=== PATIENT | male | born 1995 | race Caucasian/White ===

== ENCOUNTER 2020-11-09 12:37 | Emergency (ER) | payer OTHER ==
[~2020-11-09] VITALS: Ht 167.6 cm; Wt 57.9 kg
[2020-11-09] MEDS ORDERED: KETOROLAC 30 MG/ML 1ML VIAL IV ONE (14:00)
[2020-11-09 14:12] LABS: BASO % 0.2 % (0.0-1.0); HEMOGLOBIN 14.9 g/dl (13.5-17.5); LYMPH # 1.4 10^3/uL (1.5-5.0); LYMPH % 10.6 % (24.0-44.0); MEAN CORPUSCULAR HEMOGLOBIN 30.5 pg (27.0-33.0); MEAN CORPUSCULAR HGB CONC 33.1 g/dl (32.0-36.5); MEAN CORPUSCULAR VOLUME 92.2 fl (80.0-96.0); MONO # 0.9 10^3/uL (0.0-0.8); MONO % 7.2 % (0.0-5.0); NEUTROPHILS # 10.5 10^3/uL (1.5-8.5); NEUTROPHILS % 81.7 % (36.0-66.0); PLATELET COUNT, AUTOMATED 228 10^3/uL (150-450); RED BLOOD COUNT 4.88 10^6/uL (4.30-6.10); WHITE BLOOD COUNT 12.8 10^3/uL (4.0-10.0)
[2020-11-09 14:35] LABS: ALBUMIN 4.4 GM/DL (3.2-5.2); ALT/SGPT 27 U/L (12-78); BILIRUBIN,DIRECT 0.2 MG/DL (0.0-0.2); BILIRUBIN,TOTAL 0.8 MG/DL (0.2-1.0); BLOOD UREA NITROGEN 11 MG/DL (7-18); CALCIUM LEVEL 9.9 MG/DL (8.5-10.1); CARBON DIOXIDE LEVEL 28 MEQ/L (21-32); CHLORIDE LEVEL 103 MEQ/L (98-107); CREATININE FOR GFR 0.79 MG/DL (0.70-1.30); GLOMERULAR FILTRATION RATE > 60.0 (>60); GLUCOSE, FASTING 83 MG/DL (70-100); LIPASE 77 U/L (73-393); POTASSIUM SERUM 3.7 MEQ/L (3.5-5.1); SODIUM LEVEL 138 MEQ/L (136-145); TOTAL PROTEIN 7.8 GM/DL (6.4-8.2)
[2020-11-09] MEDS ORDERED: ISOVUE-370 76% 100ML VIAL As Ordered ONE (15:13)
--- NOTE | 2020-11-09 15:39 | REP ---
INDICATION: left sided abdominal pain COMPARISON: None. TECHNIQUE: CT Scan of the abdomen and pelvis was performed with intravenous administration of 100 cc of Isovue 370, without oral contrast. Sagittal and coronal reconstruction images are performed. FINDINGS: Lung bases: Unremarkable. Liver: There is mild fatty infiltration along the falciform ligament. Gallbladder: Unremarkable. Spleen: Normal. Adrenals: Normal. Pancreas: Normal. Kidneys: Normal. Small and large bowel: Several diverticula are seen of the left colon. There is segmental thickening of the left colon in its mid aspect. There is surrounding inflammatory change in the pericolonic fat. There is mild free fluid in the left paracolic gutter and pelvis. The findings are consistent with diverticulitis of the left colon. Free fluid: Mild free fluid in the left pericolic gutter and pelvis. Abdominal aorta: No aneurysm or dissection. Adenopathy: None. Appendix: Not inflamed. Osseous structures: Unremarkable. Pelvis: No mass. IMPRESSION: Findings consistent with diverticulitis of the left colon, with mild free fluid in the left paracolic gutter and pelvis. No free air. <Electronically signed by Demond Hernandez > 11/09/20 [id number]
[2020-11-09] MEDS ORDERED: PERC5TAB12 PO (15:54)
[2020-11-09] MEDS ORDERED: ONDA4TAB6 PO (15:54)
[2020-11-09] MEDS ORDERED: CIPR-249 PO (15:54)
[2020-11-09] MEDS ORDERED: FLAG500T PO (15:54)
[2020-11-09] MEDS ORDERED: ONDANSETRON 4 MG ORAL DISINTEGRATING TAB PO ONE (16:00)
[2020-11-09] MEDS ORDERED: PERCOCET 5MG/325MG TAB PO ONE (16:00)
[2020-11-09 16:04] VITALS: BP 132/71
== END 2020-11-09 16:06 | disposition home or self-care (01) ==
LOC: M ED 12:37
DX: K57.92 Diverticulitis of intestine, part unspecified, without perforation or abscess without bleeding (principal)
CPT/HCPCS: 74177; 80048; 80076; 81001; 83690; 85025; 96374; 99284; J1885; Q0162; Q9967

== ENCOUNTER 2021-05-26 13:38 | Emergency (ER) | payer OTHER ==
[~2021-05-26] VITALS: Ht 167.6 cm; Wt 58.5 kg
[~2021-05-26 13:38] MED LIST: CIPR-249 PO; FLAG500T PO; ONDA4TAB6 PO; PERC5TAB12 PO
[2021-05-26] MEDS ORDERED: FLUO40CA PO (13:51)
[2021-05-26] MEDS ORDERED: ONDANSETRON 4MG/2ML VIAL IV ONE (15:40)
[2021-05-26] MEDS ORDERED: NS 1,000 ML IV ONE (15:40)
[2021-05-26] MEDS ORDERED: ACETAMINOPHEN 325 MG TAB PO ONE (15:40)
[2021-05-26 15:56] LABS: BASO % 0.2 % (0.0-1.0); EOS % 0.7 % (0.0-3.0); HEMATOCRIT 42.4 % (42.0-52.0); HEMOGLOBIN 14.3 g/dl (13.5-17.5); LYMPH # 1.2 10^3/uL (1.5-5.0); LYMPH % 21.8 % (24.0-44.0); MEAN CORPUSCULAR HEMOGLOBIN 31.1 pg (27.0-33.0); MEAN CORPUSCULAR HGB CONC 33.7 g/dl (32.0-36.5); MEAN CORPUSCULAR VOLUME 92.2 fl (80.0-96.0); MONO # 0.5 10^3/uL (0.0-0.8); MONO % 9.5 % (2.0-8.0); NEUTROPHILS # 3.9 10^3/uL (1.5-8.5); NEUTROPHILS % 67.4 % (36.0-66.0); PLATELET COUNT, AUTOMATED 214 10^3/uL (150-450); WHITE BLOOD COUNT 5.7 10^3/uL (4.0-10.0)
[2021-05-26] MEDS ORDERED: ISOVUE-370 76% 100ML VIAL As Ordered ONE (16:20)
[2021-05-26 16:25] LABS: ALBUMIN 3.6 GM/DL (3.2-5.2); ALT/SGPT 26 U/L (12-78); BILIRUBIN,DIRECT < 0.1 MG/DL (0.0-0.2); BILIRUBIN,TOTAL 0.2 MG/DL (0.2-1.0); LIPASE 100 U/L (73-393); TOTAL PROTEIN 6.9 GM/DL (6.4-8.2)
--- NOTE | 2021-05-26 17:33 | REP ---
INDICATION: abdominal pain. COMPARISON: Abdomen/pelvis CT dated 11/09/2020 with IV contrast. TECHNIQUE: Abdomen/pelvis CT with IV contrast, without bowel contrast. FINDINGS: There are multiple diverticula in the descending colon and sigmoid colon as previously. The previous diverticulitis has resolved. There is wall thickening of the descending colon, nonspecific. This could be secondary to diverticulosis are could represent inflammatory versus infectious colitis in the appropriate clinical setting. There is no ascites. There is no pneumoperitoneum. There is no bowel distention or obstruction. The visualized lung rodriguez are unremarkable. The hepatic parenchyma, gallbladder, pancreas, spleen, adrenals, kidneys and abdominal aorta are unremarkable. The mesentery is unremarkable. Pelvis: The appendix is unremarkable. The bladder is unremarkable. There is no ascites or adenopathy. IMPRESSION: Descending colon diverticulosis without diverticulitis. There is focal wall thickening of the descending colon, nonspecific, secondary to the diverticulosis versus inflammatory versus infectious colitis. The previous diverticulitis has resolved. <Electronically signed by Demond Fisher > 05/26/21 [id number]
[2021-05-26] MEDS ORDERED: AUGM875T28 PO (18:26)
[2021-05-26 18:27] VITALS: BP 113/73
[2021-05-26] MEDS ORDERED: ONDA4TAB6 PO (18:28)
[2021-05-26] MEDS ORDERED: KETOROLAC 30 MG/ML 1ML VIAL IV ONE (18:30)
[2021-05-26] MEDS ORDERED: AUGMENTIN 875 MG TAB PO ONE (18:30)
== END 2021-05-26 18:50 | disposition home or self-care (01) ==
LOC: M ED 13:38
DX: K52.9 Noninfective gastroenteritis and colitis, unspecified (principal)
CPT/HCPCS: 74177; 80047; 80076; 81001; 83605; 83690; 85025; 96361; 96374; 96375; 99284; J1885; J2405; Q9967

== ENCOUNTER → 2021-07-01 | Outpatient (CLI) | payer OTHER ==
[~2021-07-01] MED LIST changes: +AUGM875T28 PO; +FLUO40CA PO
[2021-07-01 15:54] LABS: BASO % 0.2 % (0.0-1.0); EOS % 0.1 % (0.0-3.0); HEMATOCRIT 42.5 % (42.0-52.0); HEMOGLOBIN 14.6 g/dl (13.5-17.5); LYMPH # 1.2 10^3/uL (1.5-5.0); LYMPH % 13.6 % (24.0-44.0); MEAN CORPUSCULAR HEMOGLOBIN 31.3 pg (27.0-33.0); MEAN CORPUSCULAR HGB CONC 34.4 g/dl (32.0-36.5); MONO # 0.6 10^3/uL (0.0-0.8); MONO % 7.1 % (2.0-8.0); NEUTROPHILS # 7.1 10^3/uL (1.5-8.5); NEUTROPHILS % 78.6 % (36.0-66.0); PLATELET COUNT, AUTOMATED 232 10^3/uL (150-450); RED BLOOD COUNT 4.67 10^6/uL (4.30-6.10); WHITE BLOOD COUNT 9.1 10^3/uL (4.0-10.0)
[2021-07-01 16:50] LABS: ERYTHROCYTE SEDIMENTATION RATE 7 mm/hr (0-15)
[2021-07-01 16:56] LABS: ALBUMIN 3.8 GM/DL (3.2-5.2); ALT/SGPT 35 U/L (12-78); BILIRUBIN,TOTAL 0.3 MG/DL (0.2-1.0); BLOOD UREA NITROGEN 14 MG/DL (7-18); C REACTIVE PROTEIN QUANTITATIV 0.63 MG/DL (0.00-0.30); CALCIUM LEVEL 8.9 MG/DL (8.5-10.1); CARBON DIOXIDE LEVEL 27 MEQ/L (21-32); CHLORIDE LEVEL 105 MEQ/L (98-107); CREATININE FOR GFR 0.84 MG/DL (0.70-1.30); GLOMERULAR FILTRATION RATE > 60.0 (>60); GLUCOSE, FASTING 96 MG/DL (70-100); POTASSIUM SERUM 3.9 MEQ/L (3.5-5.1); SODIUM LEVEL 139 MEQ/L (136-145); TOTAL PROTEIN 7.3 GM/DL (6.4-8.2)
== END ==
LOC: M LAB 15:14
PROVIDERS: ATTEND Internal Medicine Gastroenterology
DX: K62.5 Hemorrhage of anus and rectum (principal)

== ENCOUNTER → 2021-07-03 | Outpatient (REF) | payer OTHER | LOC: M LAB REF 13:13 | PROVIDERS: ATTEND Internal Medicine Gastroenterology | DX: K62.5 Hemorrhage of anus and rectum (principal) ==

== ENCOUNTER → 2021-07-09 | Day surgery (SDC) | payer OTHER ==
[~2021-07-09] VITALS: Ht 167.6 cm; Wt 57.2 kg
[~2021-07-09] MED LIST changes: +DICY10CA13 PO; +LIDOCAINE 2% 100MG/5ML SDV (FOR ANES.) As Ordered ONE; +NS 1,000 ML IV ONE; +propofoL 200 MG/20 ML VIAL As Ordered ONE
--- NOTE | 2021-07-09 11:49 | ROOR ---
Patient Name: Avinash Glass Procedure Date: 07/09/2021 11:25 AM Date of : 1995 Age: 25 Room: [facility] Gender: Male Note Status: Finalized Procedure: Colonoscopy Indications: Hematochezia, Abnormal CT of the GI tract Providers: Darnell Maya MD Referring MD: ELVIN OCONNOR MD Requesting Provider: Medicines: Monitored Anesthesia Care Complications: No immediate complications. Procedure: Pre-Anesthesia Assessment: - The heart rate, respiratory rate, oxygen saturations, blood pressure, adequacy of pulmonary ventilation, and response to care were monitored throughout the procedure. The Colonoscope was introduced through the anus and advanced to 10 cm into the ileum. The colonoscopy was performed without difficulty. The patient tolerated the procedure well. The quality of the bowel preparation was good. Findings: The perianal and digital rectal examinations were normal. A 7 mm polyp was found in the proximal sigmoid colon. The polyp was semi-sessile. The polyp was removed with a cold snare. Resection and retrieval were complete. To prevent bleeding post-maneuver, three hemostatic clips were successfully placed. There was no bleeding at the end of the procedure. Mild sigmoid diverticulosis and small internal hemorrhoids. The exam was otherwise without abnormality on direct and retroflexion views. Impression: - One 7 mm polyp in the proximal sigmoid colon, removed with a cold snare. Resected and retrieved. Clips were placed. - Mild sigmoid diverticulosis (6 tiny diverticula seen) and small internal hemorrhoids. - The examination was otherwise normal on direct and retroflexion views. Recommendation: - Telephone endoscopist for pathology results in 2 weeks. - Use fiber, for example Citrucel, Fibercon, Konsyl or Metamucil. Procedure Code(s): --- Professional --- 10342, Colonoscopy, flexible; with removal of tumor(s), polyp(s), or other lesion(s) by snare technique Diagnosis Code(s): --- Professional --- R93.3, Abnormal findings on diagnostic imaging of other parts of digestive tract K92.1, Melena (includes Hematochezia) K63.5, Polyp of colon CPT copyright 2019 [employer]. All rights reserved. The codes documented in this report are preliminary and upon surgeon/president review may be revised to meet current compliance requirements. Darnell Maya MD Darnell Maya MD 07/09/2021 11:48:52 AM Electronically signed by Darnell Maya MD Number of Addenda: 0 Note Initiated On: 07/09/2021 11:25 AM Estimated Blood Loss: Estimated blood loss: none.
[2021-07-09 12:05] VITALS: BP 137/92
== END | disposition home or self-care (01) ==
LOC: M OPP 09:39
PROVIDERS: ATTEND Internal Medicine Gastroenterology
DX: K63.5 Polyp of colon (principal); K92.1 Melena; R93.3 Abnormal findings on diagnostic imaging of other parts of digestive tract; Z79.82 Long term (current) use of aspirin; Z79.899 Other long term (current) drug therapy